=== PATIENT | male | born 1960 | race Caucasian/White ===

== ENCOUNTER 2018-11-10 13:19 | Emergency (ER) | payer BC ==
[~2018-11-10] VITALS: Ht 167.6 cm; Wt 104.3 kg
[2018-11-10] MEDS ORDERED: ASA81 MG PO (13:41)
[2018-11-10] MEDS ORDERED: SIMVASTATIN20 MG PO (13:41)
[2018-11-11] MEDS ORDERED: FORTAMET500 MG PO (05:51)
== END 2018-11-11 06:03 | disposition home or self-care (01) ==
LOC: ER 13:19
DX: R10.84 Generalized abdominal pain (principal); E11.9 Type 2 diabetes mellitus without complications